=== PATIENT | female | born 1990 | race Caucasian/White ===

== ENCOUNTER 2020-08-15 10:04 | Inpatient (IN) ==
[2020-08-15] MEDS ORDERED: Isovue-370 500 ML BOTTLE IVP ONE (10:23)
[2020-08-15] MEDS ORDERED: 0.9 % Sodium Chloride 1,000 ML IVC ONE ×2 (10:27→16:22)
[2020-08-15] MEDS ORDERED: *HR* FentaNYL (PF) 100 MCG/2 ML VIAL IVP ONE (10:27)
[2020-08-15 10:36] LABS: Basophils % 0.8 %; Eosinophils % 2.7 %; Hematocrit 39.4 % (35.3-44.9); Hemoglobin 13.5 g/dL (11.5-15.4); Immature Granulocytes % 0.4 % (0-4); Lymphocytes % 25.6 %; Mean Corpuscular HGB Conc 34.3 g/dL (31.6-35.5); Mean Corpuscular Hemoglobin 30.1 pg (28.0-33.3); Mean Corpuscular Volume 87.8 fL (83.0-100.0); Mean Platelet Volume 8.6 fL (9.4-12.4); Platelet Count 306 K/mcL (140-400); Red Blood Count 4.49 M/mcL (3.82-4.97); Red Cell Distribution Width 12.8 % (11.5-14.5); Segmented Neutrophils % 63.5 %; White Blood Count 7.1 K/mcL (4.3-11.1)
[2020-08-15 10:37] LABS: Basophils # 0.1 K/mcL (0.0-0.2); Eosinophils # 0.2 K/mcL (0.0-0.6); Lymphocytes # 1.8 K/mcL (0.6-4.6); Monocytes # 0.5 K/mcL (0.0-1.3); Neutrophils # 4.5 K/mcL (1.6-8.9)
[2020-08-15 10:52] LABS: BUN/Creatinine Ratio 16 (6-26); Blood Urea Nitrogen 11 mg/dL (6-20); Calcium 9.1 mg/dL (8.6-10.3); Carbon Dioxide 25 mEq/L (23-29); Chloride 105 mEq/L (98-107); Glucose 85 mg/dL (70-105); Osmolality,Calculated 287 (280-300); Potassium 3.9 mEq/L (3.5-5.1); Sodium 139 mEq/L (136-145); eGFR For African Americans > 60 (> 60); eGFR For Non-African Americans > 60 (> 60)
[2020-08-15 11:07] LABS: Bilirubin,Urine Negative (Negative); Blood,Urine Negative (Negative); Clarity,Urine Clear (Clear); Color,Urine Yellow (Yellow); Glucose,Urine (UA) Normal (Normal); Ketones,Urine Negative (Negative); Leukocyte Esterase,Urine Negative (Negative); Nitrite,Urine Negative (Negative); Protein,Urine Trace mg/dL (Neg-Trace); Specific Gravity,Urine > 1.030 (1.010-1.025); Urobilinogen,Urine Normal (Normal)
[2020-08-15 16:04] LABS: Cancer Antigen 125 17 U/mL (Less than 35)
[2020-08-15] MEDS ORDERED: *HR* Belladonna Alkaloids/Opium 30 MG RECTAL SUPPOSITORY RC ONE (17:10)
[2020-08-15] MEDS ORDERED: Bupivacaine/EPI 1:200k 0.25% 50 ML VIAL ONE (17:10)
[2020-08-15] MEDS ORDERED: Ringers Solution, Lactated 1,000 ML ONE ×2 (17:37→22:32)
[2020-08-15] MEDS ORDERED: *HR* Succinylcholine 200 MG/10 ML VIAL IVP ONE (17:51)
[2020-08-15] MEDS ORDERED: Lidocaine -MPF 4% 5 ML AMPUL ONE (17:51)
[2020-08-15] MEDS ORDERED: Lidocaine -MPF 2% 2 ML VIAL ONE (17:51)
[2020-08-15] MEDS ORDERED: *HR* Rocuronium Bromide 50 MG/5 ML VIAL ONE (17:51)
[2020-08-15] MEDS ORDERED: *HR* FentaNYL (PF) 100 MCG/2 ML VIAL ONE (17:51)
[2020-08-15] MEDS ORDERED: *HR* Propofol 200 MG/20 ML VIAL IVP ONE (17:52)
[2020-08-15] MEDS ORDERED: *HR* Midazolam HCl 2 MG/2 ML VIAL ONE (17:52)
[2020-08-15] MEDS ORDERED: Famotidine 20 MG/2 ML VIAL ONE (18:02)
[2020-08-15] MEDS ORDERED: Acetaminophen IV 1,000 MG/100 ML BAG IVPB ONE (18:02)
[2020-08-15] MEDS ORDERED: Metoclopramide 10 MG/2 ML VIAL ONE (18:03)
[2020-08-15] MEDS ORDERED: *HR* Magnesium Sulfate 1 GM/2 ML VIAL ONE (18:10)
[2020-08-15] MEDS ORDERED: Ketorolac 30 MG/ML VIAL ONE (18:39)
[2020-08-15] MEDS ORDERED: *HR* HYDROMORPHONE 2 MG/ML VIAL ONE (18:39)
[2020-08-15] MEDS ORDERED: Dexamethasone 4 MG/ML VIAL ONE (18:44)
[2020-08-15] MEDS ORDERED: Ondansetron 4 MG/2 ML VIAL ONE (18:44)
[2020-08-15] MEDS ORDERED: Scopolamine Patch 1.5 MG PATCH.TD72 TD PRN (18:58)
[2020-08-15] MEDS ORDERED: *HR* HYDROmorphone (PF) 1 MG/ML SYRINGE IVP PRN (18:58)
[2020-08-15] MEDS ORDERED: *HR* Labetalol 20 MG/4 ML SYRINGE IVP PRN (18:58)
[2020-08-15] MEDS ORDERED: *HR* HYDROmorphone 2 MG TABLET PO PRN (18:58)
[2020-08-15] MEDS ORDERED: *HR* OxyCODONE Immed Rel 5 MG TABLET PO PRN (18:58)
[2020-08-15] MEDS ORDERED: *HR* Labetalol 20 MG/4 ML SYRINGE IVP ONE (20:24)
[2020-08-15] MEDS ORDERED: Sugammadex Sodium 200 MG/2 ML VIAL IV ONE (20:55)
[2020-08-15] MEDS ORDERED: Ibuprofen 600 MG TABLET PO PRN (21:53)
[2020-08-15] MEDS ORDERED: Sennosides 8.6 MG TABLET PO PRN (23:50)
[2020-08-15] MEDS ORDERED: *HR* OxyCODONE/APAP 5/325 TABLET PO PRN (23:50)
[2020-08-15] MEDS ORDERED: Naloxone 0.4 MG/ML INJ IVP PRN (23:50)
[2020-08-15] MEDS ORDERED: Ondansetron 4 MG/2 ML VIAL IVP PRN (23:50)
[2020-08-15] MEDS ORDERED: 0.9 % Sodium Chloride 1,000 ML IVC SCH (23:50)
[2020-08-16 04:33] LABS: Basophils % 0.1 %; Hematocrit 38.2 % (35.3-44.9); Hemoglobin 12.8 g/dL (11.5-15.4); Immature Granulocytes % 0.6 % (0-4); Lymphocytes # 0.6 K/mcL (0.6-4.6); Mean Corpuscular HGB Conc 33.5 g/dL (31.6-35.5); Mean Corpuscular Hemoglobin 29.2 pg (28.0-33.3); Mean Platelet Volume 8.7 fL (9.4-12.4); Monocytes # 0.5 K/mcL (0.0-1.3); Monocytes % 3.8 %; Neutrophils # 12.5 K/mcL (1.6-8.9); Platelet Count 281 K/mcL (140-400); Red Blood Count 4.39 M/mcL (3.82-4.97); Red Cell Distribution Width 12.3 % (11.5-14.5); Segmented Neutrophils % 91.5 %
[2020-08-16 04:34] LABS: White Blood Count 13.7 K/mcL (4.3-11.1)
[2020-08-16] MEDS: Ibuprofen 600 MG TABLET PO PRN ×2 (05:52→11:30)
[2020-08-16 08:07] VITALS: BP 135/84
[2020-08-16] MEDS ORDERED: amLODIPine 5 MG TABLET PO SCH (09:00)
[2020-08-16] MEDS ORDERED: FLUoxetine 20 MG CAPSULE PO SCH (09:00)
== END 2020-08-16 11:35 | disposition home or self-care (01) | DRG 743 ==
LOC: 1NENUOBS 10:04 → EMEROOARM 10:04 → 1NENUOBS 17:30
PROVIDERS: ADMIT Obstetrics & Gynecology; ATTEND Obstetrics & Gynecology